=== PATIENT | female | born 1985 | race Two or more races ===

== ENCOUNTER 2023-11-10 22:12 | Emergency (ER) | payer SELFPAY ==
[~2023-11-10] VITALS: Ht 165.1 cm; Wt 62.9 kg
[2023-11-11 02:20] VITALS: BP 148/95; PULSE 65; RESP 16; TEMP 97.1; O2SAT 100
[2023-11-11] MEDS: DexAMETHasone SOD PHOS 10MG/1ML VIAL INJ IM ONE (02:49)
[2023-11-11] MEDS: KETOROLAC TROMETH 60MG/2ML VIAL IM ONE (02:50)
[2023-11-11] MEDS ORDERED: NAP500T PO (03:23)
== END 2023-11-11 03:30 | disposition home or self-care (01) ==
LOC: ER 22:12
DX: G43.909 Migraine, unspecified, not intractable, without status migrainosus (principal)
CPT/HCPCS: 96372; 99284; J1100; J1885